=== PATIENT | male | born 1970 | race Caucasian/White ===

== ENCOUNTER 2018-10-28 12:22 | Observation (INO) | payer BC, OTHER ==
[~2018-10-28] VITALS: Ht 172.7 cm; Wt 117.5 kg
[~2018-10-28 12:22] MED LIST: HYDR1TAB PO; HYDR1TAB8 OP; LOSA1TAB23 PO; ONDAN4ODT PO; PNT40TEC PO
[2018-10-28 12:40] VITALS: BP 120/85
[2018-10-28 13:38] VITALS: BP 120/85
[2018-10-28] MEDS ORDERED: ANTACID SUSP 30 ML UDC (MYLANTA) PO PRN (14:15)
[2018-10-28] MEDS ORDERED: ONDANSETRON 4 MG/2 ML (SDV) Z0FRAN IV PRN (14:15)
[2018-10-28] MEDS ORDERED: MILK OF MAGNESIA 400 MG/5 ML 30 ML UDC PO PRN (14:15)
[2018-10-28] MEDS ORDERED: ACETAMINOPHEN 325 MG TABLET PO PRN (14:15)
[2018-10-28] MEDS ORDERED: MELATONIN 3 MG TABLET PO PRN (14:15)
[2018-10-28] MEDS ORDERED: AZITHROMYCIN INJECTION 500 MG in NS (IVPB) 250 ML IV NR (14:38)
--- NOTE | 2018-10-28 14:40 | History & Physical-Hospitalist ---
History of Present Illness HPI/Chief Complaint Pt is a 47yoCM with a PMH of HTN who presented to the urgent care due to cough. He states that his symptoms started about 2 weeks ago. He thought he had allergies or a sinus infection so took Sudafed and Mucinex. He was seen 1 week ago for similar symptoms and was given Deacdron and Kenalog. Despite this he did not improve. He was also prescribed Tessalon Perles which did not help the cough. He continued with the OTC meds and tried Hot Toddies at night. He continued to have severe cough where he would get dizzy spells. He tried using vicks and even getting in his pool. These did not help either. This morning he woke up wheezing and his prompted him to get evaluated. He was found to be mildly hypoxic on room air with sats of 87% at the urgent care. CXR was done and per the FREELANCE PROGRAMMER/APP DEVELOPER there appeared "hazy with left lung lines" which concerned her for pneumonia. Read is not available at this time. He was admitted for CAP and hypoxia. Source: patient Exam Limitations: no limitations Date Seen 10/28/18 Time Seen by a Provider: 14:30 Attending Physician Tonia Murray MD PCP Matt Hedrick MD Referring Physician Date of Admission Oct 28, 2018 at 12:30 Home Medications & Allergies Home Medications Reviewed patient Home Medication Reconciliation performed by pharmacy medication reconciliations certified hyperbaric technician and/or nursing. Patients Allergies have been reviewed. Allergies Allergies Coded Allergies No Known Drug Allergies (Unverified08/29/12) Past Fqlgnlj-Uxlbvg-Vxnmuz Hx Past Med/Social Hx: Reviewed Nursing Past Med/Soc Hx Patient Social History Marrital Status: Employed/Student: employed Alcohol Use: Occasionally Uses Smoking Status: Never a Smoker Recent Foreign Travel: No Contact w/other who traveled: No Recent Infectious Disease Expo: No Immunizations Up To Date Tetanus Booster (TDap): Unknown Past Medical History Reproductive: No Adverse Reaction to Blood Holloway: No Family History Reviewed Nursing Family Hx No Pertinent Family Hx Review of Systems Constitutional: No chills; diaphoresis; No fever EENTM: no symptoms reported Respiratory: see HPI, cough; No hemoptysis, No orthopnea; wheezing Cardiovascular: No chest pain, No edema, No palpitations Gastrointestinal: No abdominal pain, No constipation Genitourinary: no symptoms reported Musculoskeletal: no symptoms reported Skin: no symptoms reported Psychiatric/Neurological: No Symptoms Reported Physical Exam Physical Exam Vital Signs Vital Signs - First Documented 10/28/18 12:40 Temp 36.8 Pulse 79 Resp 20 B/P (MAP) 120/85 Pulse Ox 96 O2 Delivery Room Air Capillary Refill : Height, Weight, BMI Height: 5'8.00" Weight: 259lbs. 0.0oz. 117.294047et; 39.4 BMI Method:Stated General Appearance: No Apparent Distress, WD/WN, Obese HEENT: PERRL/EOMI, Moist Mucous Membranes; No Scleral Icterus (L), No Scleral Icterus (R) Respiratory: No Accessory Muscle Use, No Respiratory Distress, Wheezing Cardiovascular: Regular Rate, Rhythm, No JVD, No Murmur Gastrointestinal: Normal Bowel Sounds, Non Tender, Soft Extremity: Normal Capillary Refill, No Calf Tenderness, No Pedal Edema Neurologic/Psychiatric: Alert, Oriented x3, Normal Mood/Affect Results Results/Procedures Labs Patient resulted labs reviewed. Assessment/Plan Admission Diagnosis CAP Admission Status: Observation Assessment and Plan CAP - Continue Rocephin and Azithromycin - Does not meet sepsis criteria - Reviewed outside labs- no leukocytosis - Hypoxia at Urgent care- currently satting well on room air - Appears to follow with Dr Hedrick- Discussed with Dr Del Valle who is covering for [facility] and will assume care tomorrow - has myalgias so will check Rapid Flu HTN - BP well controlled currently - Trend Diagnosis/Problems Diagnosis/Problems (1) Essential (primary) hypertension (2) CAP (community acquired pneumonia) Qualifiers: Laterality: left Lung location: lower lobe of lung Qualified Codes: J18.1 - Lobar pneumonia, unspecified organism (3) Hypoxia TONIA MURRAY MD Oct 28, 2018 14:40
[2018-10-28] MEDS ORDERED: LORA10TA76 PO (15:02)
[2018-10-28] MEDS ORDERED: LOSA1TAB23 PO (15:02)
[2018-10-28] MEDS ORDERED: AMLO5TAB9 PO (15:05)
--- NOTE | 2018-10-28 15:05 | NUR ---
PATIENT STATES HE TAKES TWO BLOOD PRESSURE MEDICATIONS, ONE AM AND ONE IN THE EVENING. HE RECEIVES THEM FROM [facility], I CALLED AND VERIFIED WITH THEM WHICH TWO MEDICATIONS HE IS PRESCRIBED. HE ALSO TAKES CLARITIN DAILY NEEDED OTC.
[2018-10-28] MEDS: BENZONATATE 100 MG (TESSALON) CAPSULE PO PRN ×2 (15:18→23:29)
[2018-10-28] MEDS: guaiFENesin/CODEINE (ROBITUSSIN AC) 10ML UDC PO PRN ×2 (15:18→21:18)
[2018-10-28 15:58] VITALS: BP 132/84
[2018-10-28 20:00] VITALS: BP 133/80
[2018-10-28] MEDS ORDERED: PATIENT MAY USE OWN MEDS, ALL MC SCH (20:30)
[2018-10-28 23:38] VITALS: BP 153/75
[2018-10-29] MEDS: guaiFENesin/CODEINE (ROBITUSSIN AC) 10ML UDC PO PRN ×2 (01:39→06:31)
[2018-10-29] MEDS: BENZONATATE 100 MG (TESSALON) CAPSULE PO PRN ×2 (03:59→08:48)
[2018-10-29 04:00] VITALS: BP 144/80
[2018-10-29 06:00] LABS: BASOPHILS % (AUTO) 0 % (0-10); EOSINOPHILS # (AUTO) 0.5 10^3/uL (0.0-0.3); EOSINOPHILS % (AUTO) 5 % (0-10); HEMATOCRIT 43 % (40-54); HEMOGLOBIN 16.3 G/DL (13.3-17.7); LYMPHOCYTES # (AUTO) 2.4 X 10^3 (1.0-4.0); LYMPHOCYTES % (AUTO) 25 % (12-44); MEAN CORPUSCULAR HEMOGLOBIN 34 PG (25-34); MEAN CORPUSCULAR HGB CONC 38 G/DL (32-36); MEAN CORPUSCULAR VOLUME 89 FL (80-99); MEAN PLATELET VOLUME 10.2 FL (7.4-10.4); MONOCYTES # (AUTO) 0.6 X 10^3 (0.0-1.0); MONOCYTES % (AUTO) 6 % (0-12); NEUTROPHILS # (AUTO) 6.1 X 10^3 (1.8-7.8); NEUTROPHILS % (AUTO) 64 % (42-75); PLATELET COUNT 220 10^3/uL (130-400); WHITE BLOOD COUNT 9.6 10^3/uL (4.3-11.0)
[2018-10-29 06:11] LABS: BUN/CREATININE RATIO 18; CALCIUM 8.9 MG/DL (8.5-10.1); CARBON DIOXIDE 24 MMOL/L (21-32); CHLORIDE 105 MMOL/L (98-107); CREATININE SERUM 0.84 MG/DL (0.60-1.30); GFR ESTIMATED > 60; GLUCOSE 110 MG/DL (70-105); POTASSIUM 3.7 MMOL/L (3.6-5.0); SODIUM 141 MMOL/L (135-145)
[2018-10-29 08:00] VITALS: BP 133/81
[2018-10-29] MEDS ORDERED: AZITHROMYCIN 250 MG TAB (ZITHROMAX) PO SCH (09:00)
[2018-10-29 11:54] VITALS: BP 139/88
[2018-10-29] MEDS ORDERED: cefTRIAXone FOR IV USE 1,000 MG in WATER (STERILE) FOR INJECTION 10 ML IV SCH (12:00)
[2018-10-29] MEDS ORDERED: RT-ALBUINH IH (12:27)
[2018-10-29] MEDS ORDERED: AZIT250T12 PO (12:27)
[2018-10-29] MEDS ORDERED: PRD50T PO (12:27)
[2018-10-29] MEDS ORDERED: CEFD300C3 PO (12:27)
--- NOTE | 2018-10-29 12:29 | Discharge Summary ---
Discharge Summary Hospital Course Problems Reviewed?: Yes Hospital Course Date of Admission: Oct 28, 2018 at 12:30 Admission Diagnosis : - CAP - Reactive Airway Disease - HTN Family Physician/Provider: Matt Hedrick MD Date of Discharge: 10/29/18 Discharge Diagnosis: See Above Hospital Course: 47 yo M that presented to ER with increasing cough and wheezing. No previous dx of asthma or COPD. Patient denies previous admission or smoking history. Patient was placed on steroids and antibiotics and was able to titrate off oxygen. Discussed the possiblility of it being a side effect of his ARB. Will complete treatment and if not improving will adjust blood pressure medications. Home with close f.u with PCP Ivon. Labs and Pending Lab Test: Laboratory Tests 10/29/18 05:39: White Blood Count 9.6, Red Blood Count 4.87, Hemoglobin 16.3, Hematocrit 43, Mean Corpuscular Volume 89, Mean Corpuscular Hemoglobin 34, Mean Corpuscular Hemoglobin Concent 38H, Red Cell Distribution Width 14.0, Platelet Count 220, Mean Platelet Volume 10.2, Neutrophils (%) (Auto) 64, Lymphocytes (%) (Auto) 25, Monocytes (%) (Auto) 6, Eosinophils (%) (Auto) 5, Basophils (%) (Auto) 0, Neutrophils # (Auto) 6.1, Lymphocytes # (Auto) 2.4, Monocytes # (Auto) 0.6, Eosinophils # (Auto) 0.5H, Basophils # (Auto) 0.0, Sodium Level 141, Potassium Level 3.7, Chloride Level 105, Carbon Dioxide Level 24, Anion Gap 12, Blood Urea Nitrogen 15, Creatinine 0.84, Estimat Glomerular Filtration Rate > 60, BUN/Creatinine Ratio 18, Glucose Level 110H, Calcium Level 8.9 Microbiology 10/28/18 Influenza Types A,B Antigen (RICH) - Final, Complete Home Meds Active Proair Hfa (Albuterol Sulfate) 1 Puff Puff 2 Puff IH Q4H 1 PUFF = 90 MCG Prednisone 50 Mg Tab 50 Mg PO DAILY Cefdinir 300 Mg Capsule 300 Mg PO BID 7 Days Azithromycin 250 Mg Tablet 250 Mg PO DAILY Reported Amlodipine Besylate 5 Mg Tablet 5 Mg PO HS Losartan-Hctz 100-25 mg Tab (Losartan/Hydrochlorothiazide) 1 Each Tablet 1 Tab PO DAILY Claritin (Loratadine) 10 Mg Tablet 10 Mg PO DAILY PRN Assessment/Pt DC Instructions F/u Appt with Ivon on Nov 07 @ 0140 PM - make sure to complete your antibiotics Discharge Diet: No Restrictions Activity as Tolerated: Yes Discharge Physical Examination Allergies: Coded Allergies: No Known Drug Allergies (Unverified , 08/29/12) General Appearance: No Apparent Distress, WD/WN Respiratory: No Accessory Muscle Use, Expiration, Wheezing Cardiovascular: Regular Rate, Rhythm, No Edema, No Murmur, Normal Peripheral Pulses Gastrointestinal: Normal Bowel Sounds, Non Tender, Soft Extremity: Normal Range of Motion, Non Tender, No Calf Tenderness, No Pedal Edema Skin: Normal Color, Warm/Dry Neurologic/Psychiatric: Alert, Oriented x3, Normal Mood/Affect, braider operator II-XII Norm as Tested Copy Copies To 1: ROSANA MALONEY MD Discharge Summary Date of Admission Oct 28, 2018 at 12:30 Date of Discharge 10/29/2018 Admission Diagnosis CAP Discharge Diagnosis (1) Essential (primary) hypertension (2) CAP (community acquired pneumonia) Qualifiers: Qualified Codes: J18.1 - Lobar pneumonia, unspecified organism (3) Hypoxia Clinical Quality Measures DVT/VTE Risk/Contraindication: Risk Factor Score Per Nursin RFS Level Per Nursing on Admit: 3=High ROSANA MALONEY MD Oct 29, 2018 12:29
[2018-10-29 12:50] VITALS: BP 139/88
== END 2018-10-29 12:23 | disposition home or self-care (01) ==
LOC: INTOOBSV 12:30 → UNDOADMOB 12:30 → 4TH 12:30 → UNDODISOB 10-29 12:45
PROVIDERS: ADMIT Family Medicine; ATTEND Family Medicine
DX: R05 Cough (principal); J18.9 Pneumonia, unspecified organism; I10 Essential (primary) hypertension; Z79.2 Long term (current) use of antibiotics
CPT/HCPCS: 36415; 80048; 85025; 87804; 99211; G0378

== ENCOUNTER 2018-12-04 07:14 | Emergency (ER) | payer BC ==
[~2018-12-04] VITALS: Ht 172.7 cm; Wt 125.0 kg
[~2018-12-04 07:14] MED LIST changes: +AMLO5TAB9 PO; +AZIT250T12 PO; +CEFD300C3 PO; +LORA10TA76 PO; +PRD50T PO; +RT-ALBUINH IH
[2018-12-04] MEDS ORDERED: NS IV 1000 ML 1,000 ML IV SCH (07:56)
[2018-12-04] MEDS ORDERED: ONDANSETRON 4 MG/2 ML (SDV) Z0FRAN IVP ONE (08:00)
[2018-12-04] MEDS ORDERED: KETOROLAC 30 MG/ML VIAL IVP ONE (08:00)
[2018-12-04 08:06] LABS: BASOPHILS % (AUTO) 0 % (0-10); EOSINOPHILS # (AUTO) 0.1 10^3/uL (0.0-0.3); EOSINOPHILS % (AUTO) 1 % (0-10); HEMATOCRIT 46 % (40-54); HEMOGLOBIN 16.1 G/DL (13.3-17.7); LYMPHOCYTES # (AUTO) 1.2 X 10^3 (1.0-4.0); LYMPHOCYTES % (AUTO) 9 % (12-44); MEAN CORPUSCULAR HEMOGLOBIN 31 PG (25-34); MEAN CORPUSCULAR HGB CONC 35 G/DL (32-36); MEAN CORPUSCULAR VOLUME 87 FL (80-99); MEAN PLATELET VOLUME 10.4 FL (7.4-10.4); MONOCYTES # (AUTO) 0.7 X 10^3 (0.0-1.0); MONOCYTES % (AUTO) 5 % (0-12); NEUTROPHILS # (AUTO) 11.8 X 10^3 (1.8-7.8); NEUTROPHILS % (AUTO) 85 % (42-75); PLATELET COUNT 223 10^3/uL (130-400); RED CELL DISTRIBUTION WIDTH 13.1 % (10.0-14.5); WHITE BLOOD COUNT 13.8 10^3/uL (4.3-11.0)
--- NOTE | 2018-12-04 08:42 | ED GU-Male ---
General Chief Complaint: Back Problems Stated Complaint: LL BACK PAIN, STOMACH AND GROIN PAIN Nursing Triage Note: Pt ambulatory to ED with c/o of LL back pain radiating down into his left groin/testicle which started at approx 0200. Source: patient, spouse (KY SIDDIQUI,MED STUDENT) History of Present Illness Date Seen by Provider: Dec 04, 2018 Time Seen by Provider: 07:42 Initial Comments Patient is a 47 y/o male that presents to ED with Left sided low back pain that radiates to the L flank, groin and abdomen. Pain started at 0200 this morning and has got progressively worse, currently rated as 10/10. Pain is described as constant, sharp and pulsatile and is made worse with movement; n othing make pain better. Patient states that he has drank a lot of fluids to day but has been unable to urinate but he did have a bowel movement with straining this morning. According to patient he was seen her 2wks ago for PNA and bronchitis. ROS admits to diaphoresis, nausea, vomiting, abdominal pain, LBP, groin pain, oligouria, SOB denies fever, chills, headache, chest pain, shoulder pain, cough, diarrhea, constipation, muscle pain, muscle cramping, numbness and tingling Timing/Duration: this morning Severity/Quality: severe, sharp, stabbing Location: left flank, groin Activities at Onset: none Prior Genitourinary Problems: none Associated Symptoms: abdominal pain, diaphoresis, lower back pain, nausea/vomiting ([place] SIDDIQUI,MED STUDENT) Allergies and Home Medications Allergies Coded Allergies: No Known Drug Allergies (Unverified , 08/29/12) Home Medications Albuterol Sulfate 1 Puff Puff, 2 PUFF IH Q4H 1 PUFF = 90 MCG Prescribed by: ROSANA MALONEY on 10/29/18 1227 Amlodipine Besylate 5 Mg Tablet, 5 MG PO HS, (Reported) Azithromycin 250 Mg Tablet, 250 MG PO DAILY Prescribed by: ROSANA MALONEY on 10/29/18 1227 Cefdinir 300 Mg Capsule, 300 MG PO BID Prescribed by: ROSANA MALONEY on 10/29/18 1227 Hydrocodone Bit/Acetaminophen 1 Tab Tab, 1-2 EACH PO Q4H PRN for PAIN-MODERATE Prescribed by: YASMIN MEDINA on 12/04/18 1021 Loratadine 10 Mg Tablet, 10 MG PO DAILY PRN for ALLERGIES, (Reported) Losartan/Hydrochlorothiazide 1 Each Tablet, 1 TAB PO DAILY, (Reported) Ondansetron 4 Mg Tab.rapdis, 4 MG SL Q4H PRN for NAUSEA/VOMITING Prescribed by: YASMIN MEDINA on 12/04/18 1021 Prednisone 50 Mg Tab, 50 MG PO DAILY Prescribed by: ROSANA MALONEY on 10/29/18 1227 Patient Home Medication List Home Medication List Reviewed: Yes (YASMIN VO MD) Review of Systems Review of Systems Constitutional: see HPI Respiratory: see HPI Cardiovascular: see HPI Gastrointestinal: see HPI Genitourinary: see HPI Musculoskeletal: see HPI ([place] SIDDIQUI MED STUDENT) Past Xgwfgbh-Cmicox-Mgxoio Hx Patient Social History Alcohol Use: Denies Use Recreational Drug Use: No Type Used: Smokeless Tobacco Recent Foreign Travel: No Contact w/Someone Who Travel: No Recent Infectious Disease Expo: No Recent Hopitalizations: No Physical Abuse: No Sexual Abuse: No Mistreated: No Fear: No ([place] SIDDIQUI MED STUDENT) Immunizations Up To Date Tetanus Booster (TDap): Unknown ([place] SIDDIQUI MED STUDENT) Seasonal Allergies Seasonal Allergies: No ([place] SIDDIQUI MED STUDENT) Past Medical History Surgeries: Yes Gallbladder Respiratory: No Cardiac: No (HX:irreg.HR years ago) Hypertension Neurological: No Reproductive Disorders: No Genitourinary: No Gastrointestinal: No Gall Bladder Disease Musculoskeletal: No Gout Endocrine: No HEENT: No Cancer: No Psychosocial: No Integumentary: No Blood Disorders: No Adverse Reaction/Blood Tranf: No ([place] SIDDIQUI MED STUDENT) Family Medical History Diabetes mellitus 19 MOTHER FH: CABG (coronary artery bypass surgery) 19 FATHER Hypertension 19 FATHER No Pertinent Family Hx ([place] SIDDIQUI MED STUDENT) Physical Exam Vital Signs Vital Signs - First Documented 12/04/18 07:45 Temp 36.4 Pulse 77 Resp 12 B/P (MAP) 160/119 (133) Pulse Ox 98 (YASMIN VO MD) Vital Signs Capillary Refill : Less Than 3 Seconds ([place] SIDDIQUI MED STUDENT) Height, Weight, BMI Height: 5'8.00" Weight: 259lbs. 0.0oz. 117.679736ox; 41.00 BMI Method:Stated General Appearance: WD/WN, no apparent distress HEENT: PERRL/EOMI Cardiovascular: no edema, no gallop, no JVD, no murmur, tachycardia Respiratory: chest non-tender, lungs clear, normal breath sounds, no respiratory distress, no accessory muscle use Gastrointestinal: normal bowel sounds, soft, no organomegaly, no pulsatile mass, tenderness Back: CVA tenderness (L) Extremities: normal range of motion, no pedal edema, no calf tenderness Neurologic/Psychiatric: no motor/sensory deficits, alert, normal mood/affect, oriented x 3 Skin: damp, pallor (KY SIDDIQUI,MED STUDENT) Progress/Results/Core Measures Suspected Sepsis Recent Fever Within 48 Hours: No Infection Criteria Present: None New/Unexplained Altered Menta: No Sepsis Screen: No Definite Risk SIRS Temperature: Pulse: 77 Respiratory Rate: 12 Laboratory Tests 12/04/18 07:55: White Blood Count 13.8H Blood Pressure 160 /119 Mean: 133 Laboratory Tests 12/04/18 07:55: Platelet Count 223 (KY SIDDIQUI,MED STUDENT) Results/Orders Lab Results Laboratory Tests Test 12/04/18 07:55 12/04/18 09:00 Range/Units White Blood Count 13.8 H 4.3-11.0 10^3/uL Red Blood Count 5.28 4.35-5.85 10^6/uL Hemoglobin 16.1 13.3-17.7 G/DL Hematocrit 46 40-54 % Mean Corpuscular Volume 87 80-99 FL Mean Corpuscular Hemoglobin 31 25-34 PG Mean Corpuscular Hemoglobin Concent 35 32-36 G/DL Red Cell Distribution Width 13.1 10.0-14.5 % Platelet Count 223 130-400 10^3/uL Mean Platelet Volume 10.4 7.4-10.4 FL Neutrophils (%) (Auto) 85 H 42-75 % Lymphocytes (%) (Auto) 9 L 12-44 % Monocytes (%) (Auto) 5 0-12 % Eosinophils (%) (Auto) 1 0-10 % Basophils (%) (Auto) 0 0-10 % Neutrophils # (Auto) 11.8 H 1.8-7.8 X 10^3 Lymphocytes # (Auto) 1.2 1.0-4.0 X 10^3 Monocytes # (Auto) 0.7 0.0-1.0 X 10^3 Eosinophils # (Auto) 0.1 0.0-0.3 10^3/uL Basophils # (Auto) 0.0 0.0-0.1 10^3/uL Sodium Level 138 135-145 MMOL/L Potassium Level 4.3 3.6-5.0 MMOL/L Chloride Level 102 98-107 MMOL/L Carbon Dioxide Level 24 21-32 MMOL/L Anion Gap 12 5-14 MMOL/L Blood Urea Nitrogen 23 H 7-18 MG/DL Creatinine 1.35 H 0.60-1.30 MG/DL Estimat Glomerular Filtration Rate 57 BUN/Creatinine Ratio 17 Glucose Level 117 H 70-105 MG/DL Calcium Level 9.4 8.5-10.1 MG/DL Corrected Calcium 9.1 8.5-10.1 MG/DL Total Bilirubin 0.5 0.1-1.0 MG/DL Aspartate Amino Transf (AST/SGOT) 22 5-34 U/L Alanine Aminotransferase (ALT/SGPT) 35 0-55 U/L Alkaline Phosphatase 59 40-136 U/L Total Protein 6.9 6.4-8.2 GM/DL Albumin 4.4 3.2-4.5 GM/DL Urine Color YELLOW Urine Clarity CLEAR Urine pH 6 5-9 Urine Specific Freeman 1.015 L 1.016-1.022 Urine Protein NEGATIVE NEGATIVE Urine Glucose (UA) NEGATIVE NEGATIVE Urine Ketones NEGATIVE NEGATIVE Urine Nitrite NEGATIVE NEGATIVE Urine Bilirubin NEGATIVE NEGATIVE Urine Urobilinogen NORMAL NORMAL MG/DL Urine Leukocyte Esterase NEGATIVE NEGATIVE Urine RBC (Auto) NEGATIVE NEGATIVE Urine RBC 0-2 /HPF Urine WBC RARE /HPF Urine Squamous Epithelial Cells 0-2 /HPF Urine Crystals NONE /LPF Urine Bacteria NEGATIVE /HPF Urine Casts NONE /LPF Urine Mucus NEGATIVE /LPF Urine Culture Indicated NO (YASMIN VO MD) My Orders Orders - YASMIN VO MD Cbc With Automated Diff (12/04/18 07:40) Comprehensive Metabolic Panel (12/04/18 07:40) Ua Culture If Indicated (12/04/18 07:40) Ed Iv/Invasive Line Start (12/04/18 07:40) Ketorolac Injection (Toradol Injection) (12/04/18 08:00) Ns Iv 1000 Ml (Sodium Chloride 0.9%) (12/04/18 07:56) Ondansetron Injection (Zofran Injectio (12/04/18 08:00) Fentanyl Injection (Sublimaze Injection (12/04/18 09:00) Ct Abd/Pelvis Wo(Kidney Stone) (12/04/18 09:31) Abdomen/Kub 1view (12/04/18 10:43) (YASMIN VO MD) Medications Given in ED Current Medications Medications Dose Ordered Sig/Moreno Route Start Time Stop Time Status Last Admin Dose Admin Fentanyl Citrate 50 mcg ONCE ONCE IVP 12/04/18 09:00 12/04/18 09:01 DC 12/04/18 09:07 50 MCG Ketorolac Tromethamine 30 mg ONCE ONCE IVP 12/04/18 08:00 12/04/18 08:01 DC 12/04/18 08:18 30 MG Ondansetron HCl 8 mg ONCE ONCE IVP 12/04/18 08:00 12/04/18 08:01 DC 12/04/18 08:18 8 MG (YASMIN VO MD) Vital Signs/I&O 12/04/18 12/04/18 07:45 11:03 Temp 36.4 Pulse 77 72 Resp 12 12 B/P (MAP) 160/119 (133) 138/94 Pulse Ox 98 98 (YASMIN VO MD) Vital Signs/I&O Capillary Refill : Less Than 3 Seconds (KY SIDDIQUI,MED STUDENT) Blood Pressure Mean: 133 Diagnostic Imaging Diagonstic Imaging: CT Plain Films/CT/US/NM/MRI: abdomen, pelvis Comments Stone search CT of the abdomen and pelvis viewed by me and report reviewed. See report below: NAME: BRE RAPP MED REC#: [id number] PT STATUS: DEP ER : 1970 PHYSICIAN: YASMIN VO MD ADMIT DATE: 12/04/18/ER Signed Date of Exam: 12/04/18 CT ABD/PELVIS WO(KIDNEY STONE) PROCEDURE: CT urinary tract, rule out kidney stone. TECHNIQUE: Multiple contiguous axial images were obtained through the abdomen and pelvis without the use of intravenous contrast. Auto Exposure Controls were utilized during the CT exam to meet ALARA standards for radiation dose reduction. INDICATION: Left flank pain. COMPARISON: Correlation is made with prior CT from 08/29/2012. FINDINGS: Imaging through lung bases demonstrates calcified granuloma in the left lower lobe. The liver is unremarkable. Gallbladder is surgically absent. No biliary ductal dilatation is seen. The pancreas and spleen are unremarkable. No adrenal mass is detected. The right kidney is without evidence of calculi. The left kidney does demonstrate moderate hydroureteronephrosis. The dilated left ureter is traced into the pelvis where there is a 2-3 mm calculus at the UVJ. There is periureteral and perinephric inflammatory stranding noted. Aorta is nonaneurysmal. The small and large bowel loops are normal caliber. Appendix is unremarkable. There is no free fluid in the abdomen or pelvis. No bladder calculi are seen. Prostate is unremarkable. IMPRESSION: 1. 2-3 mm left UVJ calculus producing moderate hydroureteronephrosis. No other significant abnormality is detected. Dictated by: Dictated on workstation # [id number] Dict: 12/04/18 0950 Trans: 12/04/18 1608 Interpreted by: ARABELLA DAMON MD Electronically signed by: ARABELLA DAMON MD 12/04/18 1601 Diagonstic Imaging: Xray Plain Films/CT/US/NM/MRI: abdomen, pelvis Comments NAME: BRE RAPP [facility] REC#: [id number] PT STATUS: DEP ER : 1970 PHYSICIAN: YASMIN VO MD ADMIT DATE: 12/04/18/ER Signed Date of Exam: 12/04/18 ABDOMEN/KUB 1VIEW INDICATION: Left-sided flank pain. Time of exam: 10:57 AM Correlation made with prior study from 12/04/2018. Tiny calcific density in the left pelvis is noted corresponding with the UVJ calculus. No other radiopaque urinary tract calculi are seen. The bowel gas pattern is unremarkable. IMPRESSION: Distal left ureteric calculus. Dictated by: Dictated on workstation # [id number] Dict: 12/04/18 1059 Trans: 12/04/18 1602 Interpreted by: ARABELLA DAMON MD Electronically signed by: ARABELLA DAMON MD 12/04/18 2639 (YASMIN VO MD) Departure Impression Primary Impression: Left ureteral stone Additional Impression: Hydronephrosis, left Disposition: 01 HOME, SELF-CARE Condition: Improved Departure-Patient Inst. Decision time for Depature: 10:18 (YASMIN VO MD) Referrals: ROSANA MALONEY MD (PCP/Family) Primary Care Physician Patient Instructions: Kidney Stone Diet, Kidney Stones in Adults Add. Discharge Instructions: Drink plenty of clear liquids. Strain your urine and bring any stones collected with you to your follow-up appointment. Follow-up with your primary care provider or Dr. Coffman within the next week. Please call today for an appointment. Use your pain medications as prescribed. You also have a Zofran (ondansetron) prescribed for nausea if needed. Dissolve one tablet under the tongue every 4 hours as needed. Return to the emergency room if you have worsening symptoms despite treatment, especially if you develop fevers over 100 or uncontrollable pain. All discharge instructions reviewed with patient and/or family. Voiced understanding. Scripts Ondansetron (Ondansetron Odt) 4 Mg Tab.rapdis 4 MG SL Q4H PRN for NAUSEA/VOMITING, #10 TAB Prov: YASMIN VO MD 12/04/18 Hydrocodone Bit/Acetaminophen (Hydrocodone/Acetaminophen 5/325mg Tablet) 1 Tab Tab 1-2 EACH PO Q4H PRN for PAIN-MODERATE MDD 10, #20 TAB 0 Refills Prov: YASMIN VO MD 12/04/18 I have personally examined and interviewed this patient along with Ky Siddiqui, MS 3. I agree with MS 3 history, physical, assessment, and documentation with the following additions and corrections: This 47-year-old gentleman presents to the emergency room with left lower back and flank pain that radiates around to the left testicle. He has associated n ausea. The pain hit him suddenly early this morning. He denies any urinary changes or history of ureteral stones. Exam: Gen.: Alert, oriented, in mild distress due to pain HEENT: Normocephalic and atraumatic, mucous membranes moist Heart: Regular rate and rhythm without murmur Lungs: Clear to auscultation bilaterally with normal effort Abdomen: Soft, tender in the left lower quadrant, normal bowel sounds Genital: Testicles normal in appearance with no erythema or swelling, slight tenderness to the left testicle, no inguinal hernia identified Skin: Warm and dry without rashes Neuropsych: Alert, oriented, no focal deficits Risks and benefits of CT were discussed with patient. CT was pursued to identifying characterizes ureteral stone. A small left UVJ stone was identified. Pain was treated with Toradol and fentanyl. Nausea was treated with Zofran. A liter of IV fluid was infused. (YASMIN VO MD) Copy Copies To 1: ROSANA MALONEY MD, MICAH,MED STUDENT Dec 04, 2018 08:41 YASMIN VO MD Dec 04, 2018 10:21
[2018-12-04 08:46] LABS: ALBUMIN 4.4 GM/DL (3.2-4.5); BILIRUBIN,TOTAL 0.5 MG/DL (0.1-1.0); CALCIUM 9.4 MG/DL (8.5-10.1); CREATININE SERUM 1.35 MG/DL (0.60-1.30); POTASSIUM 4.3 MMOL/L (3.6-5.0); TOTAL PROTEIN 6.9 GM/DL (6.4-8.2)
[2018-12-04] MEDS ORDERED: fentaNYL INJECTION 100 MCG/2 ML AMP IVP ONE (09:00)
[2018-12-04 09:14] LABS: BILIRUBIN,URINE NEGATIVE (NEGATIVE); CLARITY,URINE CLEAR; COLOR,URINE YELLOW; GLUCOSE, URINE (UA) NEGATIVE (NEGATIVE); KETONES,URINE NEGATIVE (NEGATIVE); LEUKOCYTE ESTERASE ,URINE NEGATIVE (NEGATIVE); NITRITE,URINE NEGATIVE (NEGATIVE); PH,URINE 6 (5-9); PROTEIN,URINE NEGATIVE (NEGATIVE)
[2018-12-04 09:21] LABS: BACTERIA,URINE NEGATIVE /HPF; RBC,URINE 0-2 /HPF; SQUAMOUS EPITHELIAL CELL,UR 0-2 /HPF; WBC,URINE RARE /HPF
--- NOTE | 2018-12-04 09:56 | Diagnostic Imaging Report ---
PROCEDURE: CT urinary tract, rule out kidney stone. TECHNIQUE: Multiple contiguous axial images were obtained through the abdomen and pelvis without the use of intravenous contrast. Auto Exposure Controls were utilized during the CT exam to meet ALARA standards for radiation dose reduction. INDICATION: Left flank pain. COMPARISON: Correlation is made with prior CT from 08/29/2012. FINDINGS: Imaging through lung bases demonstrates calcified granuloma in the left lower lobe. The liver is unremarkable. Gallbladder is surgically absent. No biliary ductal dilatation is seen. The pancreas and spleen are unremarkable. No adrenal mass is detected. The right kidney is without evidence of calculi. The left kidney does demonstrate moderate hydroureteronephrosis. The dilated left ureter is traced into the pelvis where there is a 2-3 mm calculus at the UVJ. There is periureteral and perinephric inflammatory stranding noted. Aorta is nonaneurysmal. The small and large bowel loops are normal caliber. Appendix is unremarkable. There is no free fluid in the abdomen or pelvis. No bladder calculi are seen. Prostate is unremarkable. IMPRESSION: 1. 2-3 mm left UVJ calculus producing moderate hydroureteronephrosis. No other significant abnormality is detected. Dictated by: Dictated on workstation # [id number]
[2018-12-04] MEDS ORDERED: ACHD5005 PO (10:21)
[2018-12-04] MEDS ORDERED: ONDA4TAB11 SL (10:21)
--- NOTE | 2018-12-04 11:02 | Diagnostic Imaging Report ---
INDICATION: Left-sided flank pain. Time of exam: 10:57 AM Correlation made with prior study from 12/04/2018. Tiny calcific density in the left pelvis is noted corresponding with the UVJ calculus. No other radiopaque urinary tract calculi are seen. The bowel gas pattern is unremarkable. IMPRESSION: Distal left ureteric calculus. Dictated by: Dictated on workstation # [id number]
[2018-12-04 11:03] VITALS: BP 138/94
== END 2018-12-04 11:02 | disposition home or self-care (01) ==
LOC: EDUNIT# 07:14 → ER 07:16
DX: N13.2 Hydronephrosis with renal and ureteral calculous obstruction (principal); I10 Essential (primary) hypertension; Z82.49 Family history of ischemic heart disease and other diseases of the circulatory system
CPT/HCPCS: 36415; 74018; 74176; 80053; 81000; 85025

== ENCOUNTER 2021-11-30 18:25 | Emergency (ER) | payer BC ==
[~2021-11-30] VITALS: Ht 175 cm; Wt 119.2 kg
[~2021-11-30 18:25] MED LIST changes: +ACHD5005 PO; +AMLO-250 PO; -AMLO5TAB9 PO; +ONDA4TAB11 SL
--- NOTE | 2021-11-30 19:29 | Diagnostic Imaging Report ---
EXAMINATION: Left foot 3 views. HISTORY: Swelling, pain. COMPARISON: None available. FINDINGS: There are bifid medial and lateral sesamoids of the left great toe. No acute fracture. No dislocation. Joint spaces are normal. IMPRESSION: No fracture in the left lobe. Dictated by: Dictated on workstation # [id number]
--- NOTE | 2021-11-30 19:30 | Diagnostic Imaging Report ---
CLINICAL HISTORY: Left ankle pain. Swelling. Injury 5 days ago. COMPARISON: None. TECHNIQUE: 3 views of the left ankle. FINDINGS: There is no acute fracture or dislocation of the left ankle. Alignment is anatomic. The imaged joint spaces are preserved. Generalized soft tissue edema is seen surrounding the left ankle. IMPRESSION: 1. No acute fracture or dislocation in the left ankle. 2. Generalized soft tissue edema surrounding the left ankle, greatest along the medial malleolus. Dictated by: Dictated on workstation # [id number]
--- NOTE | 2021-11-30 20:03 | ED Lower Extremity ---
General Chief Complaint: Lower Extremity Stated Complaint: FOOT PAIN Nursing Triage Note: PT PRESENTS TO ED WITH COMPLAINTS OF L ANKLE/FOOT PAIN. STATES HE TWISTED IT SUNDAY AND IT HAS PROGRESSIVELY GOTTEN MORE SWOLLEN AND PAINFUL. 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 Source: patient Exam Limitations: no limitations History of Present Illness Date Seen by Provider: Nov 30, 2021 Time Seen by Provider: 18:40 Initial Comments This is a 50-year-old male who presented to the ER via POV with complaints of left ankle and foot pain. States that he believes he may have twisted it on Sunday and has had progressive swelling and worsening pain over the past several days. Allergies and Home Medications Allergies Coded Allergies: No Known Drug Allergies (Unverified , 08/29/12) Patient Home Medication List Home Medication List Reviewed: Yes Albuterol Sulfate (Proair Hfa) 1 Puff Puff, 2 PUFF IH Q4H Prescribed by: ROSANA MALONEY on 10/29/18 1227 Amlodipine Besylate (Amlodipine Besylate) 5 Mg Tablet, 5 MG PO HS, (Reported) Entered as Reported by: HÉCTOR SANTAMARIA on 10/28/18 1505 Azithromycin (Azithromycin) 250 Mg Tablet, 250 MG PO DAILY Prescribed by: ROSANA MALONEY on 10/29/18 1227 Cefdinir (Cefdinir) 300 Mg Capsule, 300 MG PO BID Prescribed by: ROSANA MALONEY on 10/29/18 1227 Hydrocodone Bit/Acetaminophen (Lortab 5 Mg Tablet) 1 Tab Tab, 1-2 EACH PO Q4H PRN for PAIN-MODERATE Prescribed by: YASMIN MEDINA on 12/04/18 1021 Loratadine (Claritin) 10 Mg Tablet, 10 MG PO DAILY PRN for ALLERGIES, (Reported) Entered as Reported by: HÉCTOR SANTAMARIA on 10/28/18 1502 Losartan/Hydrochlorothiazide (Losartan-Hctz 100-25 mg Tab) 1 Each Tablet, 1 TAB PO DAILY, (Reported) Entered as Reported by: HÉCTOR SANTAMARIA on 10/28/18 1502 Ondansetron (Ondansetron Odt) 4 Mg Tab.rapdis, 4 MG SL Q4H PRN for NAUSEA/VOMITING Prescribed by: YASMIN MEDINA on 12/04/18 1021 Prednisone (Prednisone) 50 Mg Tab, 50 MG PO DAILY Prescribed by: ROSANA MALONEY on 10/29/18 1227 Past Jvqiswk-Dfwoqx-Tglkya Hx Patient Social History Tobacco Use?: No Substance use?: No Alcohol Use?: No Pt feels they are or have been: No Immunizations Up To Date Tetanus Booster (TDap): Unknown Seasonal Allergies Seasonal Allergies: No Past Medical History Surgery/Hospitalization HX: PMH: HTN, GOUT Surgeries: Yes Gallbladder Respiratory: No Cardiac: No (HX:irreg.HR years ago) Hypertension Neurological: No Reproductive Disorders: No Genitourinary: No Gastrointestinal: No Gall Bladder Disease Musculoskeletal: No Gout Endocrine: No HEENT: No Cancer: No Psychosocial: No Integumentary: No Blood Disorders: No Adverse Reaction/Blood Tranf: No Family Medical History Diabetes mellitus 19 MOTHER FH: CABG (coronary artery bypass surgery) 19 FATHER Hypertension 19 FATHER No Pertinent Family Hx Physical Exam Vital Signs Vital Signs - First Documented 11/30/21 18:40 Temp 37.3 Pulse 89 Resp 16 B/P (MAP) 139/93 (108) Pulse Ox 98 Capillary Refill : Less Than 3 Seconds Height, Weight, BMI Height: 5'8.00" Weight: 259lbs. 0.0oz. 117.435490tt; 38.00 BMI Method:Stated Progress/Results/Core Measures Results/Orders My Orders Orders - BAKARI MONTOYA APRN Ankle, Left, 3 Views (11/30/21 19:04) Foot, Left, 3 Views (11/30/21 19:04) Vital Signs/I&O 11/30/21 11/30/21 18:40 20:13 Temp 37.3 Pulse 89 89 Resp 16 16 B/P (MAP) 139/93 (108) 139/93 Pulse Ox 98 98 Blood Pressure Mean: 108 Diagnostic Imaging Diagonstic Imaging: Xray Comments [facility], [place] NAME: BRE RAPP MED REC#: [id number] PT STATUS: REG ER : 1970 PHYSICIAN: BAKARI MONTOYA APRN ADMIT DATE: 11/30/21/ER Signed Date of Exam:11/30/21 FOOT, LEFT, 3 VIEWS EXAMINATION: Left foot 3 views. HISTORY: Swelling, pain. COMPARISON: None available. FINDINGS: There are bifid medial and lateral sesamoids of the left great toe. No acute fracture. No dislocation. Joint spaces are normal. IMPRESSION: No fracture in the left lobe. Dictated by: Dictated on workstation # [id number] Dict: 11/30/211922 Trans: 11/30/211932 [facility] [id number] Interpreted by: PAZ CHRISTINE MD Electronically signed by: PAZ CHRISTINE MD 11/30/211932 Comments [facility], [place] NAME: BRE RAPP [facility] REC#: [id number] PT STATUS: REG ER : 1970 PHYSICIAN: BAKARI MONTOYA APRN ADMIT DATE: 11/30/21/ER Signed Date of Exam:11/30/21 ANKLE, LEFT, 3 VIEWS CLINICAL HISTORY: Left ankle pain. Swelling. Injury 5 days ago. COMPARISON: None. TECHNIQUE: 3 views of the left ankle. FINDINGS: There is no acute fracture or dislocation of the left ankle. Alignment is anatomic. The imaged joint spaces are preserved. Generalized soft tissue edema is seen surrounding the left ankle. IMPRESSION: 1. No acute fracture or dislocation in the left ankle. 2. Generalized soft tissue edema surrounding the left ankle, greatest along the medial malleolus. Dictated by: Dictated on workstation # [id number] Dict: 11/30/211921 Trans: 11/30/211928 [facility] [id number] Interpreted by: ROXANA BRITT DO Electronically signed by: ROXANA BRITT DO 11/30/211928 Departure Impression Primary Impression: Sesamoiditis of left foot Disposition: 01 HOME, SELF-CARE Condition: Improved Departure-Patient Inst. Decision time for Depature: 20:00 Referrals: ROSANA MALONEY MD (PCP/Family) Primary Care Physician Patient Instructions: Foot Sprain (DC) Add. Discharge Instructions: Plan: 1. Rest, ice, elevation. Establish with primary care provider of choice. 2. Sesamoiditis is a repetitive stress injury, so the first thing to do to begin healing is to stop the activities that are causing the stress. You will need to keep pressure off of the injury until symptoms ease. 3. Use cane to help off load pressure until symptoms improve. 4. May use Naproxen 500mg by mouth twice a day as needed. 5. Wear comfortable shoes. Dont cramp your toes in a narrow toe box or strain the ball of your foot with overly high heels if you do a lot of walking. Replace your sneakers when the cushioning wears down. 6. Wear custom orthotics. This is especially important if your job involves a lot of weight-bearing on your feet, or if you have anatomical factors that contribute to sesamoiditis, such as high arches or flat feet. Orthotic footwear can help deflect pressure away from the big toe joint. 7. Preventative therapy. When you know youve been stressing your feet, follow strenuous activities with rest, ice and elevation to keep inflammation down. 8. Return for any new, concerning, or worsening symptoms. Dr. Alexander Address: [address] [place] [address] All discharge instructions reviewed with patient and/or family. Voiced understanding. BAKARI MONTOYA APRN Nov 30, 2021 20:03
[2021-11-30 20:13] VITALS: BP 139/93
== END 2021-11-30 20:13 | disposition home or self-care (01) ==
LOC: EDUNIT# 18:25 → ER 18:27
DX: M25.872 Other specified joint disorders, left ankle and foot (principal)
CPT/HCPCS: 73610; 73630

== ENCOUNTER 2022-01-23 05:35 | Outpatient (CLI) | payer BC ==
[~2022-01-23] VITALS: Ht 175.3 cm; Wt 127.5 kg
[~2022-01-23 05:35] MED LIST changes: +ALBU8.5H6 IH; -RT-ALBUINH IH
[2022-01-24] MEDS ORDERED: MELO7.5T46 PO (09:39)
[2022-01-24] MEDS ORDERED: AMLO2.5T4 PO (09:39)
== END 2022-01-24 10:18 | disposition home or self-care (01) ==
LOC: PREOP 05:35
PROVIDERS: ATTEND Surgery
DX: Z01.818 Encounter for other preprocedural examination (principal)

== ENCOUNTER 2022-01-30 06:48 | Day surgery (SDC) | payer BC ==
[~2022-01-30] VITALS: Ht 175.3 cm; Wt 127.5 kg
[~2022-01-30 06:48] MED LIST changes: +AMLO2.5T4 PO; +MELO7.5T46 PO
[2022-01-30] MEDS ORDERED: LACTATED RINGERS 1,000 ML IV STA (07:05)
[2022-01-30] MEDS ORDERED: PROPOFOL INJECTION 50 ML IV ONE (07:12)
[2022-01-30] MEDS ORDERED: MIDAZOLAM 2 MG/2 ML (VERSED) VIAL ONE (07:12)
[2022-01-30 07:15] VITALS: BP 134/85
--- NOTE | 2022-01-30 07:32 | Progress Note-Pre Operative ---
Pre-Operative Progress Note Date of Available H&P: Jan 02, 2022 Date H&P Reviewed: Jan 30, 2022 Time H&P Reviewed: 07:28 History & Physical: H&P Reviewed, Patient Examed, No changes noted Pre-Operative Diagnosis: family history of colon cancer MANISH NGUYEN DO Jan 30, 2022 07:32
[2022-01-30 07:55] VITALS: BP 100/59
[2022-01-30 08:00] VITALS: BP 110/59
--- NOTE | 2022-01-30 08:00 | Discharge Inst-Simple/Standard ---
Discharge Inst-Standard Patient Instructions/Follow Up Plan of Care/Instructions/FU: 5 years Gerald, any issues before that be seen at that time. Change in bowel habits, blood in stool or any other change. Activity as Tolerated: Yes Discharge Diet: Regular Diet (high fiber) MANISH NGUYEN DO Jan 30, 2022 08:00
[2022-01-30 08:20] VITALS: BP 122/81
[2022-01-30 08:30] VITALS: BP 122/81
--- NOTE | 2022-01-30 09:35 | OPERATIVE REPORT ---
DATE OF SERVICE: 01/30/2022 PREOPERATIVE DIAGNOSIS: Family history of colon cancer. POSTOPERATIVE DIAGNOSIS: Normal colon. PROCEDURE: Colonoscopy. SURGEON: Manish Duarte DO ANESTHESIA: Per FARM MACHINE OPERATOR. ESTIMATED BLOOD LOSS: None. COMPLICATIONS: None. INDICATIONS: The patient is a 51-year-old male, needing screening colonoscopy due to family history of colon cancer. He understands risks and benefits of the procedure and wishes to proceed. Consent was signed in chart. DESCRIPTION OF PROCEDURE: The patient was taken to the endoscopy suite, placed in left lateral position. Timeout was performed. Digital rectal exam was performed. No palpable polyps, masses or ulcerations. Scope was inserted in the rectum and advanced all the way to the cecum with minimal difficulty. Prep was adequate. Scope was slowly retracted back. No polyps, masses or ulcerations of the cecum, ascending, transverse, descending and sigmoid colon. Once in the rectum, scope was retroflexed noting no other pathology. Scope was returned to its normal position and slowly withdrawn to completely remove. The patient tolerated the procedure well without complications, taken to recovery room in stable condition. RECOMMENDATIONS: The patient will need repeat colonoscopy in 5 years and any issues before that be seen at that time for reevaluation. Job ID: [id number] DocumentID: [id number] Dictated Date: 01/30/2022 08:01:40 Custom Feed Mill Operator Date: 01/30/2022 09:33:00 Dictated By: MANISH DUARTE DO
--- NOTE | 2022-01-30 13:28 | Anesthesia-General Post-Op ---
MAC Patient Condition Mental Status/LOC: Same as Preop Cardiovascular: Satisfactory Nausea/Vomiting: Absent Respiratory: Satisfactory Pain: Controlled Complications: Absent Post Op Complications Complications None Follow Up Care/Instructions Patient Instructions None needed. Anesthesiology Discharge Order Discharge Order Patient is doing well, no complaints, stable vital signs, no apparent adverse anesthesia problems. No complications reported per nursing. MARU CHAIREZ CRNA Jan 30, 2022 13:28
== END 2022-01-30 08:35 | disposition home or self-care (01) ==
LOC: ENDO 06:48
PROVIDERS: ATTEND Surgery
DX: Z12.11 Encounter for screening for malignant neoplasm of colon (principal); Z80.0 Family history of malignant neoplasm of digestive organs; E66.01 Morbid (severe) obesity due to excess calories; Z68.41 Body mass index [BMI] 40.0-44.9, adult